=== PATIENT | female | born 1970 ===

== ENCOUNTER 2019-05-01 20:14 | Emergency (ER) | payer OTHER ==
[~2019-05-01] VITALS: Ht 152.4 cm; Wt 83.1 kg
[2019-05-01 21:48] VITALS: BP 122/74
== END 2019-05-01 21:49 | disposition home or self-care (01) ==
LOC: ED 20:14
DX: S61.210A Laceration without foreign body of right index finger without damage to nail, initial encounter (principal); W26.8XXA Contact with other sharp object(s), not elsewhere classified, initial encounter; Y93.89 Activity, other specified; Y92.098 Other place in other non-institutional residence as the place of occurrence of the external cause; Y99.8 Other external cause status
CPT/HCPCS: 90715

== ENCOUNTER 2020-06-03 10:13 | Inpatient (IN) | payer OTHER ==
[~2020-06-03] VITALS: Ht 152.4 cm; Wt 77.1 kg
[2020-06-03 10:17] VITALS: Ht 152.4 cm; Wt 77.1 kg
[2020-06-03 11:24] LABS: BASOPHIL % 0.3 % (0-2); PLATELET COUNT 295 x10^3mcL (130-400); RED CELL DISTRIBUTION WIDTH 13.4 % (11.5-14.5)
[2020-06-03 11:54] LABS: ALBUMIN 4.4 g/dL (3.4-5.0); BILIRUBIN TOTAL 0.94 mg/dL (0.20-1.00); CALCIUM 9.8 mg/dL (8.5-10.1); CARBON DIOXIDE 17.3 mmol/L (21-32); CREATININE SERUM 1.9 mg/dL (0.6-1.0); POTASSIUM SERUM 5.2 mmol/L (3.5-5.1)
[2020-06-03 13:21] LABS: FREE T4 1.16 ng/dL (0.76-1.46); FREE THYROXINE INDEX 2.1 ug/dL (1.4-4.5); T4(THYROXINE) 5.5 ug/dL (4.7-13.3)
[2020-06-03 13:22] LABS: T3 TOTAL 0.45 ng/mL
[2020-06-03 14:23] LABS: UA SPECIFIC GRAVITY 1.025 (1.005-1.035); microscopic required? YES; urine erythrocyte 3+ (NEGATIVE)
[2020-06-03 16:19] LABS: CALCIUM 8.9 mg/dL (8.5-10.1); CARBON DIOXIDE 21.4 mmol/L (21-32); CREATININE SERUM 1.5 mg/dL (0.6-1.0); PHOSPHOROUS 2.2 mg/dL (2.5-4.9); POTASSIUM SERUM 3.8 mmol/L (3.5-5.1)
[2020-06-03 18:26] LABS: ALBUMIN 3.6 g/dL (3.4-5.0); BILIRUBIN TOTAL 0.63 mg/dL (0.20-1.00); CALCIUM 8.4 mg/dL (8.5-10.1); CARBON DIOXIDE 17.9 mmol/L (21-32); CREATININE SERUM 1.3 mg/dL (0.6-1.0); POTASSIUM SERUM 3.4 mmol/L (3.5-5.1); TOTAL PROTEIN, SERUM 7.4 g/dL (6.4-8.2)
[2020-06-03 21:33] LABS: CALCIUM 8.4 mg/dL (8.5-10.1); CARBON DIOXIDE 20.1 mmol/L (21-32); CREATININE SERUM 1.2 mg/dL (0.6-1.0); PHOSPHOROUS 2.1 mg/dL (2.5-4.9); POTASSIUM SERUM 3.4 mmol/L (3.5-5.1)
[2020-06-03 23:05] LABS: BILIRUBIN TOTAL 0.5 mg/dL (0.20-1.00); CALCIUM 6.5 mg/dL (8.5-10.1); CARBON DIOXIDE 19.8 mmol/L (21-32); CREATININE SERUM 1.3 mg/dL (0.6-1.0)
[2020-06-03 23:06] LABS: ALBUMIN 2.5 g/dL (3.4-5.0); TOTAL PROTEIN, SERUM 5.2 g/dL (6.4-8.2)
[2020-06-03 23:08] LABS: POTASSIUM SERUM 2.5 mmol/L (3.5-5.1)
[2020-06-04 00:41] VITALS: BP 126/46
[2020-06-04 00:54] LABS: CALCIUM 8.7 mg/dL (8.5-10.1); CARBON DIOXIDE 22.4 mmol/L (21-32); CREATININE SERUM 1.4 mg/dL (0.6-1.0); PHOSPHOROUS 2.4 mg/dL (2.5-4.9); POTASSIUM SERUM 3.2 mmol/L (3.5-5.1)
[2020-06-04 06:30] LABS: BASOPHIL % 0.3 % (0-2); PLATELET COUNT 246 x10^3mcL (130-400); RED CELL DISTRIBUTION WIDTH 13.3 % (11.5-14.5)
[2020-06-04 06:49] LABS: CALCIUM 8.1 mg/dL (8.5-10.1); CARBON DIOXIDE 21.3 mmol/L (21-32); CREATININE SERUM 1.1 mg/dL (0.6-1.0); POTASSIUM SERUM 3.4 mmol/L (3.5-5.1)
[2020-06-04 07:59] VITALS: BP 112/57
[2020-06-04 12:00] VITALS: BP 122/55
[2020-06-04] MEDS ORDERED: GLU500 PO (12:37)
[2020-06-04] MEDS ORDERED: GLU5 PO (12:37)
[2020-06-04 14:37] VITALS: BP 122/55
[2020-06-05] MEDS ORDERED: FIASP 100100 UNIT/1 SQ (21:43)
[2020-06-05] MEDS ORDERED: LANTUS SOLOS100 U/M1 SC (21:43)
== END 2020-06-04 15:29 | disposition home or self-care (01) | DRG 420 ==
LOC: ED 10:13 → IC 12:16 → MU 06-04 14:07
PROVIDERS: Emergency Medicine; ADMIT Internal Medicine; ATTEND Internal Medicine
DX: E11.10 Type 2 diabetes mellitus with ketoacidosis without coma (principal); Z20.828 Contact with and (suspected) exposure to other viral communicable diseases
CPT/HCPCS: 36600; 82962; 84439; G0378; J1644; J1815; Q0092